=== PATIENT | male | born 1965 | race Caucasian/White ===

== ENCOUNTER 2016-10-12 12:18 | Emergency (ER) | payer MEDICAID ==
[~2016-10-12] VITALS: Ht 165.1 cm; Wt 68.0 kg
[2016-10-12 12:30] VITALS: BP 115/69
[2016-10-12] MEDS ORDERED: IBUPROFEN 400 MG TABLET ONE (12:59)
[2016-10-12] MEDS ORDERED: IBUPROFEN 400 MG TABLET PO ONE (13:00)
== END 2016-10-12 15:44 | disposition home or self-care (01) ==
LOC: ER 12:20
DX: S62.92XA Unspecified fracture of left hand, initial encounter for closed fracture (principal); W19.XXXA Unspecified fall, initial encounter; Y93.89 Activity, other specified; Y92.89 Other specified places as the place of occurrence of the external cause; Y99.8 Other external cause status
CPT/HCPCS: 73110; 73120-TC; A4606; Z7610

== ENCOUNTER 2019-08-24 20:16 | Emergency (ER) | payer SELFPAY ==
[~2019-08-24] VITALS: Ht 167.6 cm; Wt 81.6 kg
--- NOTE | 2019-08-24 20:30 | NUR ---
BIBSELF. C/O "GLF TODAY. R WRIST PAIN AND L KNEE PAIN S/P SLIP, -KO" AOX4. AMBULATORY. -SOB NOTED. -TRAUMA. -LOC
[2019-08-24] MEDS ORDERED: IBUPROFEN 600 MG TABLET PO ONE ×2 (20:47→21:00)
--- NOTE | 2019-08-24 21:06 | NUR ---
PT OK TO DISCHARGE PER DR GUEVARA. Patient discharged to home in stable condition. Written and verbal after care instructions given. Patient verbalizes understanding of instruction.Patient is awake and alert to self, day, and place. PT ambulatory with a steady gait
[2019-08-24 21:07] VITALS: BP 142/85
== END 2019-08-24 21:07 | disposition home or self-care (01) ==
LOC: ER 20:23
DX: S63.591A Other specified sprain of right wrist, initial encounter (principal); S83.8X2A Sprain of other specified parts of left knee, initial encounter; W01.0XXA Fall on same level from slipping, tripping and stumbling without subsequent striking against object, initial encounter; Y93.89 Activity, other specified; Y92.89 Other specified places as the place of occurrence of the external cause; Y99.8 Other external cause status
CPT/HCPCS: 73564-TC

== ENCOUNTER 2019-09-15 11:04 | Emergency (ER) | payer SELFPAY ==
[~2019-09-15] VITALS: Ht 170.2 cm; Wt 77.1 kg
[2019-09-15 11:45] VITALS: BP 124/75
[2019-09-15] MEDS ORDERED: IBUPROFEN 600 MG TABLET PO ONE ×2 (14:10→14:30)
[2019-09-15] MEDS ORDERED: ONDANSETRON 4 MG TAB.RAPDIS ONE (14:11)
[2019-09-15] MEDS ORDERED: ONDANSETRON 4 MG TAB.RAPDIS SL ONE (14:30)
== END 2019-09-15 14:15 | disposition home or self-care (01) ==
LOC: ER 11:05
DX: B34.9 Viral infection, unspecified (principal)
CPT/HCPCS: 99283; Q0162

== ENCOUNTER 2022-08-11 07:33 | Emergency (ER) | payer MEDICAID, OTHER ==
[~2022-08-11] VITALS: Ht 172.7 cm; Wt 70.8 kg
--- NOTE | 2022-08-11 07:48 | NUR ---
PT TO ER BED 12 C/O NAUSEA AND VOMITNG SINCE THIS MORNING, ENDORSES 4 EPISODE OF VOMITNG SINCE AM. PT STATES DIABETIC AND IS CONCERN ABOUT HIGH BLOOD SUGAR. DENIES ABDOMINAL PAIN. STABLE VITALS. AWAITING MD KNOWLES.
--- NOTE | 2022-08-11 07:54 | NUR ---
DR FERNANDEZ AT BEDSIDE FOR EVAL.
[2022-08-11] MEDS ORDERED: ONDANSETRON HCL/PF 4 MG/2 ML VIAL IV ONE (08:00)
[2022-08-11] MEDS ORDERED: IV NS 0.9% 1,000 ML IV ONE (08:00)
[2022-08-11] MEDS ORDERED: ONDANSETRON HCL/PF 4 MG/2 ML VIAL ONE (08:07)
[2022-08-11 09:21] LABS: BASOPHILS % (AUTO) 0.5 % (0.0-2.0); EOSINOPHILS % (AUTO) 0.6 % (0.0-6.0); HEMATOCRIT 43 % (39-51); HEMOGLOBIN 14.3 g/dL (13.5-17.5); LYMPHOCYTES # (AUTO) 1.7 K/uL (0.8-4.8); LYMPHOCYTES % (AUTO) 17.1 % (20.0-44.0); MEAN CORPUSCULAR HGB CONC 33 g/dl (31.0-36.0); MEAN CORPUSCULAR VOLUME 87 fL (80-96); MONOCYTES # (AUTO) 0.7 K/uL (0.1-1.30); MONOCYTES % (AUTO) 7.3 % (2.0-12.0); NEUTROPHILS # (AUTO) 7.3 K/uL (1.8-8.9); NEUTROPHILS % (AUTO) 74.5 % (43.0-81.0); PLATELET COUNT (AUTO) 217 K/uL (150-450); RED BLOOD CELL COUNT(AUTO) 4.97 MIL/uL (4.5-6.0); WHITE BLOOD COUNT (AUTO) 9.8 K/uL (4.3-11.0)
[2022-08-11 09:35] LABS: ALBUMIN 3.6 g/dL (3.4-5.0); BILIRUBIN,TOTAL 0.2 mg/dL (0.2-1.0); CALCIUM, SERUM 8.3 mg/dL (8.5-10.1); CREATININE 0.9 mg/dL (0.6-1.3); POTASSIUM 3.5 mmol/L (3.5-5.1); TOTAL PROTEIN, SERUM 6.8 g/dL (6.4-8.2)
--- NOTE | 2022-08-11 10:17 | NUR ---
URINE COLLECTED AND SENT
[2022-08-11 11:03] LABS: BILIRUBIN,URINE NEGATIVE (NEGATIVE); COLOR,URINE YELLOW (YELLOW); LEUKOCYTE ESTERASE ,URINE NEGATIVE (NEGATIVE); NITRITE, URINE NEGATIVE (NEGATIVE); PH,URINE 5.5 (5.0-8.0); PROTEIN,URINE NEGATIVE (NEGATIVE); UGLUCOSE NEGATIVE (NEGATIVE); UROBILINOGEN,URINE 0.2 EU/dL (0.2)
[2022-08-11] MEDS ORDERED: ONDA4TAB5 PO (11:15)
--- NOTE | 2022-08-11 12:50 | NUR ---
IV removed. Catheter intact and site benign. Pressure and 4x4 applied to site. No bleeding noted.Patient discharged to home in stable condition. Written and verbal after care instructions given. Patient verbalizes understanding of instruction.
[2022-08-11 12:52] VITALS: BP 120/84
== END 2022-08-11 12:50 | disposition home or self-care (01) ==
LOC: ER 07:40
DX: R11.2 Nausea with vomiting, unspecified (principal); R10.9 Unspecified abdominal pain; R42 Dizziness and giddiness; E11.9 Type 2 diabetes mellitus without complications
CPT/HCPCS: 99284; 96374; 96361; 93005; 85025; 83690; 81003; 36415; 80053; 84484; 82962; J2405; J7030